=== PATIENT | female | born 1970 | race Caucasian/White ===

== ENCOUNTER 2016-12-02 13:17 | Emergency (ER) | payer MEDICAID, OTHER ==
[~2016-12-02] VITALS: Ht 162.6 cm; Wt 85.0 kg
[~2016-12-02 13:17] MED LIST: ASPI325T PO; DOXE50 PO; GLIP5 PO; GLUC1000 PO; LAMO25TA PO; METO25 PO; OXYC-360 PO; PARO40TA PO; SIMV20TA PO
[2016-12-02 13:19] VITALS: BP 230/92; PULSE 106; RESP 24; TEMP 97.7; O2SAT 100
--- NOTE | 2016-12-02 13:24 | PD ---
Physical Exam Time Seen by Provider: 13:20 Narrative 46 y/o female here for evaluation of 4 days of chest pain, sent by PCP office. Vital signs reviewed. Seen at triage desk. Awaiting bed placement. Data Data Last Documented VS Vital Signs Date Time Temp Pulse Resp B/P Pulse Ox O2 Delivery O2 Flow Rate FiO2 12/02/16 13:19 97.7 106 24 230/92 100 Room Air [facility] Medical Record Reviewed: Yes Supervised Visit with CHIKI: Jerod Forde Dec 02, 2016 13:23
[2016-12-02 13:40] VITALS: BP_SYST 180; BP_SYST 192; BP_DIAS 76; PULSE 78; RESP 16; O2SAT 99
[2016-12-02] MEDS ORDERED: NITROGLYCERIN-DEXTROSE INJ 250 ML IV SCH (13:45)
[2016-12-02] MEDS ORDERED: SODIUM CHLORIDE 0.9% FLUSH 10 ML FLUSH IVF PRN (13:45)
[2016-12-02 13:56] VITALS: BP 154/62; PULSE 92; RESP 16; O2SAT 98
[2016-12-02 14:01] VITALS: BP 136/62; PULSE 74; RESP 16; O2SAT 98
[2016-12-02] MEDS ORDERED: BUTATAB6 PO (14:01)
[2016-12-02] MEDS ORDERED: LORA-392 PO (14:01)
[2016-12-02] MEDS ORDERED: GABA400C5 PO (14:01)
[2016-12-02] MEDS ORDERED: ASPI325T PO (14:01)
[2016-12-02] MEDS ORDERED: GLIP10TA6 PO (14:01)
[2016-12-02] MEDS ORDERED: AMBI10TA PO (14:01)
[2016-12-02] MEDS ORDERED: ATOR1TAB18 PO (14:01)
[2016-12-02 14:04] LABS: AUTOMATED NEUTROPHIL # 4.5 TH/MM3 (1.8-7.7); BASOPHIL % 0.3 % (0.0-2.0); EOSINOPHIL # 0.2 TH/MM3 (0-0.4); EOSINOPHIL % 2.1 % (0.0-4.0); HEMATOCRIT 40.9 % (35.0-46.0); HEMO FLAGS DIFF FINAL; LYMPH % 35.1 % (9.0-44.0); LYMPHOCYTE # 2.7 TH/MM3 (1.0-4.8); MEAN CELL VOLUME 90.4 FL (80.0-100.0); MEAN CORPUSCULAR HEMOGLOBIN 30.3 PG (27.0-34.0); MEAN CORPUSCULAR HGB CONC 33.5 % (32.0-36.0); MONO % 4.9 % (0.0-8.0); NEUT % 57.6 % (16.0-70.0); PLATELET COUNT 156 TH/MM3 (150-450); RED BLOOD COUNT 4.52 MIL/MM3 (4.00-5.30); RED CELL DISTRIBUTION WIDTH 14.3 % (11.6-17.2); WHITE BLOOD COUNT 7.8 TH/MM3 (4.0-11.0)
[2016-12-02] MEDS ORDERED: GLIP5TAB8 PO (14:12)
[2016-12-02] MEDS ORDERED: K-TA10TA PO (14:12)
[2016-12-02] MEDS ORDERED: LISI10TA3 PO (14:12)
[2016-12-02] MEDS ORDERED: HYDR-3288 PO (14:12)
[2016-12-02] MEDS ORDERED: NITR1SUB3 SL (14:12)
[2016-12-02] MEDS ORDERED: IPRA0.02 NEB (14:12)
[2016-12-02] MEDS ORDERED: LANTUS2P SQ (14:12)
[2016-12-02] MEDS ORDERED: FURO1TAB62 PO (14:12)
[2016-12-02] MEDS ORDERED: PARO1TAB73 PO (14:12)
[2016-12-02] MEDS ORDERED: PANT40TA3 PO (14:12)
[2016-12-02] MEDS ORDERED: NOVOLOGP2 SQ (14:12)
[2016-12-02] MEDS ORDERED: METO50TA PO (14:12)
[2016-12-02] MEDS ORDERED: MS C60TA4 PO (14:12)
[2016-12-02 14:14] LABS: APTT (PATIENT) 27.1 SEC (24.3-30.1); INTERNATIONAL NORMALIZED RATIO 0.9 RATIO; PROTHROMBIN TIME - PATIENT 10.2 SEC (9.8-11.6)
[2016-12-02] MEDS ORDERED: ALBUAER3 INH (14:16)
[2016-12-02] MEDS ORDERED: ERGO1CAP30 PO (14:16)
[2016-12-02] MEDS ORDERED: SPIRCAP INH (14:16)
[2016-12-02] MEDS ORDERED: PRAS10TA PO (14:17)
--- NOTE | 2016-12-02 14:19 | RADRPT ---
EXAM DATE/TIME: 12/02/2016 13:48 [place] COMPARISON: CHEST SINGLE AP, November 26, 2011, 6:04. INDICATIONS : Chest pain. MEDICAL HISTORY : Diabetes mellitus type II. Hypercholesterolemia. Chronic obstructive pulmonary disease. Hypertens ion. SURGICAL HISTORY : CABG. ENCOUNTER: Initial ACUITY: 2 days PAIN SCORE: 10/10 LOCATION: Bilateral chest FINDINGS: The lungs are clear without infiltrate, nodule, or mass. There is no appreciable pleural effusion fo r technique. Heart and mediastinum are unremarkable. There is evidence for prior median sternotomy. CONCLUSION: No acute cardiopulmonary disease. Cesar Hernandez MD on December 02, 2016 at 14:17 Board Certified Radiologist. This report was verified electronically.
[2016-12-02 14:21] LABS: ALT (GPT) 21 U/L (10-53); ANION GAP 8 MEQ/L (5-15); AST (GOT) 16 U/L (15-37); BICARBONATE 31.4 MEQ/L (21.0-32.0); BLOOD UREA NITROGEN 7 MG/DL (7-18); CHLORIDE 98 MEQ/L (98-107); GLOMERULAR FILTRATION RATE 48 ML/MIN (>89); MAGNESIUM 1.7 MG/DL (1.5-2.5); POTASSIUM 3.6 MEQ/L (3.5-5.1); SODIUM (NA) 137 MEQ/L (136-145)
[2016-12-02 14:25] LABS: ALKALINE PHOSPHATASE 124 U/L (45-117); TOTAL BILIRUBIN ADULT 0.8 MG/DL (0.2-1.0)
[2016-12-02 14:34] LABS: CREATINE KINASE 87 U/L (26-192)
[2016-12-02] MEDS ORDERED: cloNIDine HCL 0.1 MG TAB PO ONE (15:00)
[2016-12-02] MEDS ORDERED: LISI-515 PO (15:32)
--- NOTE | 2016-12-02 15:33 | PD ---
HPI Chief Complaint: Chest Pain Time Seen by Provider: 13:45 Travel History International Travel<30 days: No Contact w/Intl Traveler<30days: No Traveled to known affect area: No History of Present Illness HPI 46-year-old female with history of previous PR and CABG, presents to the ER today because she is having 4 days history of substernal chest pains which have been waxing and waning, about a 4 out of 10 currently. She had been seen by her primary care physician who had talked her track grinder operator and was sent into the ER for further evaluation a chest pains. She reports no shortness of breath , vomiting, or any other issues. She apparently is post to get a stress test with her track grinder operator tomorrow. She states that she has been having trouble refilling her medications due to Medicare issues and she does not have her blood pressure medications as well. Modifying Factors: None Associated Signs & Symptoms: Chest pains Risk Factors: Cardiac history PFSH Past Medical History Hx Anticoagulant Therapy: Yes Arthritis: Yes Asthma: Yes Autoimmune Disease: No Blood Disorders: No Anxiety: Yes Depression: Yes Heart Rhythm Problems: No Cancer: No Cardiovascular Problems: Yes (CABG X 2; R CAROTID) High Cholesterol: Yes Chemotherapy: No Chest Pain: Yes Congestive Heart Failure: No COPD: Yes Cerebrovascular Accident: No Diabetes: Yes Patient Takes Glucophage: Yes Diminished Hearing: No Endocrine: No GERD: No Glaucoma: No Genitourinary: No Headaches: Yes Hepatitis: No Hiatal Hernia: No Hypertension: Yes Immune Disorder: No Kidney Stones: No Musculoskeletal: Yes Neurologic: No Psychiatric: Yes (anxiety) Reproductive: No Migraines: Yes Myocardial Infarction: Yes (JULY 2005) Radiation Therapy: No Renal Failure: No Seizures: No Sickle Cell Disease: No Sleep Apnea: No Thyroid Disease: No Ulcer: No Tetanus Vaccination: > 5 Years Influenza Vaccination: Yes ?: Not Past Surgical History Abdominal Surgery: Yes AICD: No Appendectomy: No Arteriovenous Shunt: No Cardiac Surgery: Yes (Cabg, Stents, Caths) Cholecystectomy: No Ear Surgery: No Endocrine Surgery: No Eye Surgery: No Genitourinary Surgery: Yes Gynecologic Surgery: Yes (tubal ligations.) Insulin Pump: No Joint Replacement: No Oral Surgery: No Pacemaker: No Thoracic Surgery: No Other Surgery: Yes Social History Alcohol Use: No (pt denies) Tobacco Use: Yes (1 PACK CIGS PER DAY) Substance Use: No Allergies-Medications (Allergen,Severity, Reaction): Coded Allergies: Brilinta (Verified Allergy, Severe, Anaphylaxis, 12/02/16) Penicillin (Verified Allergy, Severe, Anaphylaxis, 12/02/16) Reported Meds & Prescriptions Reported Meds & Active Scripts Active Reported Effient (Prasugrel) 10 Mg Tab 10 Mg PO DAILY Ergocalciferol 50,000 Unit Cap 50,000 Units PO EVERY 2 WEEKS Spiriva Handihaler (Tiotropium Inh) 18 Mcg Cap 18 Mcg INH HS 1 capsule = 18 mcg Proair Hfa 8.5 GM Inh (Albuterol Sulfate) 90 Mcg/Act Aer 2 Puff INH Q6H PRN 108 mcg/actuation K-Tab (Potassium Chloride) 10 Meq Tab 10 Meq PO DAILY PRN Paroxetine (Paroxetine HCl) 30 Mg Tab 60 Mg PO DAILY Pantoprazole (Pantoprazole Sodium) 40 Mg Tab 40 Mg PO DAILY Novolog Inj (Insulin Aspart) 1,000 Unit/10 Ml Vial 0 SQ TIDAC Sliding Scale as directed. [place] (Hydrocodone-Acetaminophen) 7.5-325 mg Tab 1 Tab PO TID PRN Nitroglycerin SL (Nitroglycerin) 0.4 Mg Subl 0.4 Mg SL DIRECTED PRN ONE TABLET UNDER THE TONGUE NEEDED FOR CHEST PAIN, MAY REPEAT EVERY FIVE MINUTES FOR A TOTAL OF 3 DOSES OR CALL 911 IF NO RELIEF Ms Contin (Morphine Sulfate) 60 Mg Tablet.er 60 Mg PO Q12HR Metoprolol Tartrate 50 Mg Tab 50 Mg PO BID Lisinopril 10 Mg Tab 10 Mg PO DAILY Lasix (Furosemide) 20 Mg Tab 20 Mg PO DAILY PRN Lantus Inj (Insulin Glargine) 1,000 Unit/10 Ml Vial 50 Units SQ DAILY Ipratropium Neb (Ipratropium [place]) 0.5 Mg/2.5 Ml Amp 0.5 Mg NEB QID NEB Glipizide 5 Mg Tab 5 Mg PO BIDAC Take 30 minutes before a meal Gabapentin 400 Mg Cap 400 Cap PO TID Oeeymjjiwh-Ewlsgskaizhmr-Lslhaqnq 50-325-40 Mg Tab 1-2 Tab PO BID PRN Do not exceed 6 tablets/day. Atorvastatin (Atorvastatin Calcium) 80 Mg Tab 80 Mg PO HS Ativan (Lorazepam) 0.5 Mg Tab 0.5 Mg PO BID PRN Aspirin 325 Mg Tab 325 Mg PO HS Ambien (Zolpidem Tartrate) 10 Mg Tab 10 Mg PO HS PRN Review of Systems Except as stated in HPI: all other systems reviewed are Neg Physical Exam Narrative GENERAL: Well-developed middle age female patient currently in moderate distress. Awake and oriented 3. SKIN: Focused skin assessment warm/dry. HEAD: Atraumatic. Normocephalic. EYES: Pupils equal and round. No scleral icterus. No injection or drainage. ENT: No nasal bleeding or discharge. Mucous membranes pink and moist. NECK: Trachea midline. No JVD. CARDIOVASCULAR: Regular rate and rhythm. No murmur appreciated. Pulses are present and equal bilaterally. RESPIRATORY: No accessory muscle use. Clear to auscultation. Breath sounds equal bilaterally. GASTROINTESTINAL: Abdomen soft, non-tender, nondistended. Hepatic and splenic margins not palpable. MUSCULOSKELETAL: No obvious deformities. No clubbing. No cyanosis. No edema. NEUROLOGICAL: Awake and alert. No obvious cranial nerve deficits. Motor grossly within normal limits. Normal speech. PSYCHIATRIC: Appropriate mood and affect; insight and judgment normal. Data Data Last Documented VS Vital Signs Date Time Temp Pulse Resp B/P Pulse Ox O2 Delivery O2 Flow Rate FiO2 12/02/16 14:01 74 16 136/62 98 Partial Rebreather 12/02/16 13:19 97.7 Orders Electrocardiogram (12/02/16 13:37) Ckmb (Isoenzyme) Profile (12/02/16 13:37) Complete Blood Count With Diff (12/02/16 13:37) Comprehensive Metabolic Panel (12/02/16 13:37) Magnesium (Mg) (12/02/16 13:37) Prothrombin Time / Inr (Pt) (12/02/16 13:37) Act Partial Throm Time (Ptt) (12/02/16 13:37) Troponin I (12/02/16 13:37) Chest, Single Ap (12/02/16 13:37) Ecg Monitoring (12/02/16 13:37) Bilateral Bp Monitoring (12/02/16 13:37) Iv Access Insert/Monitor (12/02/16 13:37) Oximetry (12/02/16 13:37) Oxygen Administration (12/02/16 13:37) Sodium Chloride 0.9% Flush (Ns Flush) (12/02/16 13:45) Nitroglycerin-Dextrose Inj (Nitroglyceri (12/02/16 13:45) Clonidine (Catapres) (12/02/16 15:00) Labs Laboratory Tests Test 12/02/16 13:40 White Blood Count 7.8 TH/MM3 Red Blood Count 4.52 MIL/MM3 Hemoglobin 13.7 GM/DL Hematocrit 40.9 % Mean Corpuscular Volume 90.4 FL Mean Corpuscular Hemoglobin 30.3 PG Mean Corpuscular Hemoglobin 33.5 % Concent Red Cell Distribution Width 14.3 % Platelet Count 156 TH/MM3 Mean Platelet Volume 8.7 FL Neutrophils (%) (Auto) 57.6 % Lymphocytes (%) (Auto) 35.1 % Monocytes (%) (Auto) 4.9 % Eosinophils (%) (Auto) 2.1 % Basophils (%) (Auto) 0.3 % Neutrophils # (Auto) 4.5 TH/MM3 Lymphocytes # (Auto) 2.7 TH/MM3 Monocytes # (Auto) 0.4 TH/MM3 Eosinophils # (Auto) 0.2 TH/MM3 Basophils # (Auto) 0.0 TH/MM3 CBC Comment DIFF FINAL Differential Comment Prothrombin Time 10.2 SEC Prothromb Time International 0.9 RATIO Ratio Activated Partial 27.1 SEC Thromboplast Time Sodium Level 137 MEQ/L Potassium Level 3.6 MEQ/L Chloride Level 98 MEQ/L Carbon Dioxide Level 31.4 MEQ/L Anion Gap 8 MEQ/L Blood Urea Nitrogen 7 MG/DL Creatinine 1.20 MG/DL Estimat Glomerular Filtration 48 ML/MIN Rate Random Glucose 249 MG/DL Calcium Level 9.0 MG/DL Magnesium Level 1.7 MG/DL Total Bilirubin 0.8 MG/DL Aspartate Amino Transf 16 U/L (AST/SGOT) Alanine Aminotransferase 21 U/L (ALT/SGPT) Alkaline Phosphatase 124 U/L Total Creatine Kinase 87 U/L Troponin I 0.02 NG/ML Total Protein 7.4 GM/DL Albumin 3.8 GM/DL MDM Medical Decision Making Medical Screen Exam Complete: Yes Emergency Medical Condition: Yes Medical Record Reviewed: Yes Interpretation(s) EKG shows sinus rhythm with a partial right bundle branch block pattern at a rate of [address] depressions in the inferior leads and lateral leads. Last 24 hours Impressions Chest X-Ray 12/02/16 1337 Signed Impressions: Service Date/Time: Friday, December 02, 2016 13:48 - CONCLUSION: No acute cardiopulmonary disease. Cesar Hernandez MD Laboratory Tests Test 12/02/16 13:40 Creatinine 1.20 MG/DL (0.50-1.00) Estimat Glomerular Filtration 48 ML/MIN (>89) Rate Random Glucose 249 MG/DL (74-106) Alkaline Phosphatase 124 U/L (45-117) Differential Diagnosis ACS versus dysrhythmias versus hypertensive urgency Narrative Course Lab work and cardiac enzymes, EKG, chest x-ray were all unremarkable. Patient' s blood pressure was initially fairly elevated and she was given nitroglycerin drip in the ER with the blood pressure response. She had been given full dose aspirin by her primary care physician. Case was discussed with Dr. Milner, patient's track grinder operator and he states that the patient can be stopped from nitroglycerin, given clonidine in, and should get her lisinopril dosage doubled. He states that she can be released with follow-up for stress test tomorrow. At this point, the patient is reevaluated at 3:30 PM is feeling improved. Blood pressures improved. My plan would be to release her as previously discussed with her track grinder operator. Plan was discussed with the patient and she states understanding. She should return for any worsening in symptoms as needed. Diagnosis Primary Impression: Chest pain Additional Impression: Hypertensive urgency Med/Other Pt SpecificInfo: Prescription(s) given Scripts Lisinopril 20 Mg Tab20 Mg PO DAILY #10 TAB Ref 0 Prov:Yu Hanson MD 12/02/16 Disposition: 01 DISCHARGE HOME Condition: Stable Yu Hanson MD Dec 02, 2016 15:33
[2016-12-02 15:45] VITALS: BP 141/64; PULSE 67; RESP 16; O2SAT 96
--- NOTE | 2016-12-03 11:27 | EKG ---
Date Performed: 12/02/2016 Time Performed: 13:35:16 PTAGE: 46 years EKG: Sinus rhythm LEFT ATRIAL ENLARGEMENT INFERIOR MYOCARDIAL INFARCTION MODERATE T-WAVE ABNORMALITY, CONSIDER LATERAL ISCHEMIA ABNORMAL ECG Slight intraventricular conduction delay PREVIOUS TRACING 11/26/2011 No change from the prior tracing. DOCTOR: William Romero Interpretating Date/Time 12/03/2016 11:25:48
== END 2016-12-02 15:50 | disposition home or self-care (01) ==
LOC: NEPC 13:17
DX: R07.9 Chest pain, unspecified (principal); I10 Essential (primary) hypertension; I45.10 Unspecified right bundle-branch block; I51.7 Cardiomegaly; I25.2 Old myocardial infarction; R94.31 Abnormal electrocardiogram [ECG] [EKG]; J44.9 Chronic obstructive pulmonary disease, unspecified; E11.9 Type 2 diabetes mellitus without complications; M19.90 Unspecified osteoarthritis, unspecified site
CPT/HCPCS: 71010; 80053; 82550; 83735; 84484; 85025; 85610; 85730; 93005; 96365